=== PATIENT | female | born 1985 | race Caucasian/White ===

== ENCOUNTER 2016-11-20 23:26 | Emergency (ER) | payer MEDICAID, OTHER ==
[~2016-11-20 23:26] MED LIST: PREN1CAP7 PO
[2016-11-21] MEDS ORDERED: LACTATED RINGER'S 1000 ML INJ 1,000 ML IV SCH (01:30)
--- NOTE | 2016-11-21 01:39 | PD ---
HPI Chief Complaint lower abdominal pain and back pain Date Seen: Nov 21, 2016 Travel History International Travel<30 Days: No Contact w/Intl Traveler<30Days: No Known Affected Area: No History of Present Illness HPI This is a 31y/o at 29w4d who presents with c/o back, fever at home 101.4, upper abdominal pain, headaches, body aches, nausea/poor appetite and abdominal "fullness." Last BM was 4-5 days ago. She states she had her baby shower this past weekend and started feeling sick, unsure about sick contacts. No cold like symptoms. Temp of 101.4 at home, afebrile here. care with [facility], care uncomplicated per patient. : 1 History Past Medical History Medical History: Denies Significant Hx Past Surgical History Surgical History: No Previous Surgery Family History Family History: Negative Social History Alcohol Use: No Tobacco Use: No Substance Abuse: No Allergies-Medications (Allergen,Severity, Reaction): Coded Allergies: No Known Allergies (Unverified , 11/13/16) Home Meds Active Scripts W/O Vit A W/ Fe Fumar (Citranatal [place])27-1-260 Mg Cap1 Cap PO DAILY #60 CAP Ref 5 Prov:Juany Veronica [facility] 08/27/16 Review of Systems Except as stated in HPI: all other systems reviewed are Neg Physical Exam Narrative GENERAL: Well-nourished, well-developed patient. SKIN: Warm and dry. HEAD: Normocephalic and atraumatic. EYES: No scleral icterus. No injection or drainage. ENT: No nasal drainage noted. Mucous membranes pink. Airway patent. NECK: Supple, trachea midline. No JVD. CARDIOVASCULAR: Regular rate and rhythm without murmurs, gallops, or rubs. RESPIRATORY: Breath sounds equal bilaterally. No accessory muscle use. BREASTS: Bilateral exam showed no masses , no retractions, no nipple discharge. ABDOMEN/GI: Abdomen soft, non-tender, bowel sounds present, no rebound, no guarding Gravid to 29 weeks size GENITOURINARY: External Genitalia: intact and normal in appearance VE: deferred Uterine Contractions: None FHT's: Category: 1, initially tachycardia, resolved with IVF EXTREMITIES: No cyanosis or edema. BACK: Nontender without obvious deformity. No CVA tenderness. NEUROLOGICAL: Awake and alert. Motor and sensory grossly within normal limits. Five out of 5 muscle strength in all muscle groups. Normal speech. Data Data Vital Signs Reviewed: Yes Orders Influenzae A/B Antigen (11/21/16 00:55) Vital Signs (Adult) .ON ADMISSION (11/21/16 01:30) ^ Labor Status (11/21/16 01:30) Lactated Ringer's 1000 Ml Inj (Lr 1000 M (11/21/16 01:30) Labs Date/Time Procedure Status Source Growth 11/21/16 00:40 Influenza Types A,B Antigen (SOFIA) - Final Complete Nasal Washing NEGATIVE FOR FLU A AND B ANTIGEN.... MDM Medical Record Reviewed: No Narrative Course / MDM 31y/o at 29w4d with initial maternal/ tachycardia which resolved with IVF. -afebrile -rapid flu negative -likely with viral syndrome Plan -d/c home -f/u for routine care Diagnosis Diagnosis: Primary Impression: Viral URI Additional Impression: 29 weeks gestation of Disposition: 01 DISCHARGE HOME Condition: Good Patient Instructions: General Instructions, Labor (ED), Abdominal Pain in (ED) Additional Instructions: RETURN FOR CONTRACTIONS, LOSS OF FLUID (WATER BREAKING), VAGINAL BLEEDING, OR DECREASED MOVEMENT DRINK 8-10 LARGE GLASSES OF WATER EVERY DAY KEEP SCHEDULED APPOINTMENT WITH YOUR PROVIDER Departure Forms: Tests/Procedures Shanti May MD Nov 21, 2016 01:39
== END 2016-11-21 06:45 | disposition home or self-care (01) ==
LOC: HOBED 23:26
DX: O99.513 Diseases of the respiratory system complicating pregnancy, third trimester (principal); J06.9 Acute upper respiratory infection, unspecified; Z3A.29 29 weeks gestation of pregnancy
CPT/HCPCS: 87804; 99283

== ENCOUNTER 2017-02-07 06:41 | Inpatient (IN) | payer MEDICAID ==
[~2017-02-07] VITALS: Ht 162.6 cm; Wt 116.0 kg
[2017-02-07] VITALS (57 sets, daily range): BP systolic 99–145; BP diastolic 56–103; PULSE 74–124; RESP 16–20; TEMP 98–100; O2SAT 100
[2017-02-07] MEDS ORDERED: LACTATED RINGER'S 1000 ML INJ 1,000 ML IV SCH (07:22)
[2017-02-07] MEDS ORDERED: LACTATED RINGER'S 1000 ML INJ 1,000 ML IV PRN (07:22)
--- NOTE | 2017-02-07 07:29 | PD ---
HPI Chief Complaint SROM Date Seen: Feb 07, 2017 Time Seen: 07:18 (Shahram Segovia MD R2) Travel History International Travel<30 Days: No Contact w/Intl Traveler<30Days: No (Shahram Segovia MD R2) History of Present Illness HPI 31-year-old at 40/5 weeks gestation presenting with spontaneous rupture of membranes occurring at 5 AM this morning. She is also having contractions about every 5 minutes. Otherwise she feels well. Denies chest pain, shortness of breath, dysuria. Denies vaginal bleeding. Endorses movement. (Shahram Segovia MD R2) History Past Medical History Medical History: Denies Significant Hx (Shahrma Segovia MD R2) Obstetric History Obstetric History G1 (Shahram Segovia MD R2) Past Surgical History Surgical History: No Previous Surgery (Shahram Segovia MD R2) Family History Family History: Negative (Shahram Segovia MD R2) Social History Alcohol Use: No Tobacco Use: No Substance Abuse: No (Shahram Segovia MD R2) Allergies-Medications (Allergen,Severity, Reaction): Coded Allergies: No Known Allergies (Unverified , 02/05/17) Home Meds Active Scripts W/O Vit A W/ Fe Fumar (Citranatal [place]) 27-1-260 Mg Cap, 1 CAP PO DAILY for Nutritional Supplement, #60 CAP 5 Refills Prov:Juany Veronica [facility] 08/27/16 Review of Systems Except as stated in HPI: all other systems reviewed are Neg (Shahram Segovia MD R2) Physical Exam Narrative GENERAL: Well-nourished, well-developed patient. SKIN: Warm and dry. HEAD: Normocephalic and atraumatic. EYES: No scleral icterus. No injection or drainage. ENT: No nasal drainage noted. Mucous membranes pink. Airway patent. CARDIOVASCULAR: Regular rate and rhythm without murmurs, gallops, or rubs. RESPIRATORY: Breath sounds equal bilaterally. No accessory muscle use. ABDOMEN/GI: Abdomen soft, non-tender, no rebound, no guarding GENITOURINARY: Cervix: midposition Dilation: 5 cm Effacement: 70% Presentation: -2 Membranes: SROM @0500 Contractions: Every 3-5 mins FHT's: Category: 1 Baseline: 140 Reactive: Y Variability: moderate Decels: N EXTREMITIES: No cyanosis or edema. NEUROLOGICAL: Awake and alert. Motor and sensory grossly within normal limits. Normal speech. (Shahram Segovia MD R2) Data Data Vital Signs Reviewed: Yes Orders Orders Ob (2e) Additional Admit Info (02/07/17 07:19) Admit To Inpatient (02/07/17 ) Code Status (02/07/17 07:22) Vital Signs (Adult) .Per protocol (02/07/17:22) Activity Oob Ad Christen (02/07/17 07:22) Heart (02/07/17:22) Amnioinfusion (02/07/17:22) Urinary Catheter Management .ONCE (02/07/17:22) Diet Liquid (02/07/17 Breakfast) Lactated Ringer's 1000 Ml Inj (Lr 1000 M (02/07/17 07:22) Lactated Ringer's 1000 Ml Inj (Lr 1000 M (02/07/17 07:22) Sodium Chlorid 0.9% 500 Ml Inj (Ns 500 M (02/07/17 07:30) Sodium Chlor 0.9% 1000 Ml Inj (Ns 1000 M (02/07/17 07:42) Lidocaine 1% Inj (50 Ml) (Xylocaine 1% I (02/07/17 07:30) Citric Acid-Sodium Citrate Liq (Bicitra (02/07/17 07:30) Ondansetron Inj (Zofran Inj) (02/07/17 07:30) Fentanyl Inj (Fentanyl Inj) (02/07/17 07:30) Fentanyl Inj (Fentanyl Inj) (02/07/17 07:30) Complete Blood Count With Diff (02/07/17 07:22) Hold Clot (02/07/17 07:22) Abo/Rh Blood Type (02/07/17 07:22) Urinalysis - C+S If Indicated (02/07/17 07:22) Resp Oxygen Non Rebreathe Mask (02/07/17 ) ^ Epidural / Intrathecal Infus (02/07/17 07:22) Oxytocin 30 Units-500ml Premix (Pitocin (02/07/17 07:30) Lidocaine 1% Inj (50 Ml) (Xylocaine 1% I (02/07/17 07:30) Light Mineral Oil (Muri-Lube Oil) (02/07/17 07:30) Inpatient Certification (02/07/17 ) Pamg-1 Test .ONCE (02/07/17 07:22) Group B Strep: Negative (Shahram Segovia MD R2) [facility] Medical Record Reviewed: Yes Narrative Course / MDM 31-year-old at 40/5 weeks in labor #1 IUP Category 1 tracing, reassuring #2 GBS negative #3 spontaneous rupture of membranes AmniSure positive #4 labor Contractions and cervical change with spontaneous rupture Admit to L&D Epidural anesthesia per patient preference Continuous monitoring Anticipate uncomplicated vaginal delivery (Shahram Segovia MD R2) Attending Attestation The exam, history, and the medical decision-making described in the above note were completed with the assistance of the resident provider. I reviewed and agree with the findings presented. I attest that I had a [id number] encounter with the patient on the same day, and personally performed and documented my assessment and findings in the medical record. (Severiano Nation MD) Shahram Segovia MD R2 Feb 07, 2017 07:29 Severiano Nation MD Feb 07, 2017 08:03
[2017-02-07] MEDS ORDERED: MINERAL OIL 10 ML VIAL TOPICAL PRN (07:30)
[2017-02-07] MEDS ORDERED: CITRIC ACID-SODIUM CITRATE LIQ 30 ML UDC PO SCH (07:30)
[2017-02-07] MEDS ORDERED: SODIUM CHLORID 0.9% 500 ML INJ 500 ML IV PRN (07:30)
[2017-02-07] MEDS ORDERED: ONDANSETRON HCL 4 MG/2 ML VIAL IV PUSH PRN (07:30)
[2017-02-07] MEDS ORDERED: OXYTOCIN 30 UNITS-500ML PREMIX 500 ML IV ONE (07:30)
[2017-02-07] MEDS ORDERED: LIDOCAINE HCL 1% 50 ML VIAL I-DERMAL PRN (07:30)
[2017-02-07] MEDS ORDERED: LIDOCAINE HCL 1% 50 ML VIAL INFIL PRN (07:30)
[2017-02-07] MEDS ORDERED: SODIUM CHLOR 0.9% 1000 ML INJ 1,000 ML IV PRN (07:42)
[2017-02-07 08:22] LABS: AUTOMATED NEUTROPHIL # 11.3 TH/MM3 (1.8-7.7); BASOPHIL % 0.3 % (0.0-2.0); EOSINOPHIL # 0.1 TH/MM3 (0-0.4); EOSINOPHIL % 0.8 % (0.0-4.0); HEMATOCRIT 38.4 % (35.0-46.0); HEMO FLAGS DIFF FINAL; LYMPH % 13.4 % (9.0-44.0); LYMPHOCYTE # 1.9 TH/MM3 (1.0-4.8); MEAN CELL VOLUME 93.4 FL (80.0-100.0); MEAN CORPUSCULAR HEMOGLOBIN 32.7 PG (27.0-34.0); MONO % 5.1 % (0.0-8.0); NEUT % 80.4 % (16.0-70.0); PLATELET COUNT 211 TH/MM3 (150-450); RED BLOOD COUNT 4.12 MIL/MM3 (4.00-5.30); WHITE BLOOD COUNT 14.1 TH/MM3 (4.0-11.0)
[2017-02-07 08:27] LABS: BACTERIA, URINE RARE /hpf; BLOOD, URINE NEG (NEG); COMMENT (UR) CULTURE INDICATED; CULTURE IF INDICATED CULTURE INDICATED; GLUCOSE,URINE NEG (NEG); KETONE, URINE NEG (NEG); NITRITE,URINE NEG (NEG); SQUAMOUS EPITHELIAL CELL URINE 3 /hpf (0-5); URINE COLOR YELLOW (YELLW/STRAW)
[2017-02-07] MEDS ORDERED: ePHEDrine/NS 25 MG/5 ML SYR ONE (08:33)
[2017-02-07] MEDS ORDERED: fentaNYL 2MCG-BUPIV 0.125% INJ 100 ML ONE (08:33)
--- NOTE | 2017-02-07 09:50 | PD.LABORPN ---
Subjective Subjective S/p epidural. Patient is doing well. No complaints. (Marlene Gary MD R1) Objective Vital Signs Vital Signs Date Time Temp Pulse Resp B/P (MAP) Pulse Ox O2 Delivery O2 Flow Rate FiO2 02/07/17 09:11 86 118/66 (83) 02/07/17 09:10 90 127/73 (91) 02/07/17 09:06 86 125/76 (92) 02/07/17 09:00 93 123/80 (94) Objective Pelvic Exam: Cervix: mid Dilatation: 6cm Effacement: 80% Station: -2 Presentation: vertex Membranes: ruptured Uterine Contractions: every 3-4 min FHT's: Category: 1 Baseline: 120 Reactive: yes Variability: moderate Decels: N Weeks Gestation: 40 Gest Age Assessed Date: Feb 07, 2017 Gest Age Assessed Time: 09:44 Pt started active labor?: Yes Active labor start date: Feb 07, 2017 Active labor start time: 07:00 Medical induction of labor?: No Artificial rupture of membrane: No (Marlene Gary MD R1) Assessment/Plan Assessment and Plan 31-year-old at 40/5 weeks in active labor #1 IUP Category 1 tracing, reassuring #2 GBS negative #3 spontaneous rupture of membranes AmniSure positive #4 labor s/p epidural Cervical change, progressing well. Continuous monitoring Anticipate uncomplicated vaginal delivery (Marlene Gary MD R1) Assessment and Plan Patient seen and evaluated with resident under direct supervision, agree with assessment and plan. (Yariel Naidu MD) Marlene Gary MD R1 Feb 07, 2017 09:50 Yariel Naidu MD Feb 07, 2017 19:49
[2017-02-07] MEDS ORDERED: NO SYSTEM NARCOTICS PRN (10:15)
[2017-02-07] MEDS ORDERED: fentaNYL 2MCG-BUPIV 0.125% 100 ML EPIDURAL SCH (10:15)
[2017-02-07] MEDS ORDERED: ePHEDrine/NS 25 MG/5 ML SYR IV PUSH PRN (10:15)
[2017-02-07] MEDS ORDERED: DO NOT ADMINISTER ANTICOAGULANTS PRN (10:15)
--- NOTE | 2017-02-07 14:18 | PD.LABORPN ---
Subjective Subjective IUPC placed (Marlene Gary MD R1) Objective Vital Signs Vital Signs Date Time Temp Pulse Resp B/P (MAP) Pulse Ox O2 Delivery O2 Flow Rate FiO2 02/07/17 14:01 100 116/84 (95) 02/07/17 14:00 20 02/07/17 13:46 102 121/73 (89) 02/07/17 13:16 101 115/73 (87) 02/07/17 12:44 98.8 20 02/07/17 12:31 101 135/77 (96) 02/07/17 12:22 20 02/07/17 12:16 96 106/57 (73) 02/07/17 12:00 79 113/56 (75) 02/07/17 11:45 20 02/07/17 11:16 85 134/79 (97) 02/07/17 11:01 78 134/80 (98) 02/07/17 10:46 74 132/76 (94) 02/07/17 10:45 20 02/07/17 10:31 84 133/82 (99) 02/07/17 10:16 85 106/59 (75) 02/07/17 10:15 20 02/07/17 10:01 86 114/68 (83) 02/07/17 09:46 91 114/68 (83) 02/07/17 09:31 105 120/80 (93) 02/07/17 09:30 90 02/07/17 09:25 94 02/07/17 09:15 93 116/103 (107) 02/07/17 09:15 97 02/07/17 09:11 86 118/66 (83) 02/07/17 09:10 90 127/73 (91) 02/07/17 09:06 86 125/76 (92) 02/07/17 09:00 93 123/80 (94) Objective Pelvic Exam: Cervix: mid Dilatation: 8 Effacement: 90% Station: -1 Presentation: vertex Membranes: ruptured Uterine Contractions: every 2 min FHT's: Category: 1 Baseline: 130s Reactive: yes Variability: moderate Decels: no Weeks Gestation: 40 Gest Age Assessed Date: Feb 07, 2017 Gest Age Assessed Time: 09:44 Pt started active labor?: Yes Active labor start date: Feb 07, 2017 Active labor start time: 07:00 Medical induction of labor?: No Artificial rupture of membrane: No (Marlene Gary MD R1) Assessment/Plan Assessment and Plan 31-year-old at 40/5 weeks in active labor #1 IUP Category 1 tracing, reassuring #2 GBS negative #3 spontaneous rupture of membranes AmniSure positive #4 labor s/p epidural IUPC placed Continuous monitoring Anticipate uncomplicated vaginal delivery (Marlene Gary MD R1) Assessment and Plan Patient seen and evaluated with resident under direct supervision, agree with assessment and plan. (Yariel Naidu MD) Marlene Gary MD R1 Feb 07, 2017 14:18 Yariel Naidu MD Feb 07, 2017 15:26
[2017-02-07] MEDS ORDERED: MEASLES, MUMPS, RUBELLA VACCINE 0.5 ML VIAL SQ ONE (16:00)
[2017-02-07] MEDS ORDERED: DIPHTH/TETANUS/ACEL PERTUSSIS (BOOSTER) 0.5 ML VIAL/PFS IM ONE (16:00)
[2017-02-07] MEDS ORDERED: BUPIVACAINE HCL PF 0.25% 10 ML VIAL ONE (16:40)
--- NOTE | 2017-02-07 19:32 | PD.OB.DELI ---
Weeks gestation: 40 Gest age assessed date: Feb 07, 2017 Gest age assessed time: 09:44 Pt started active labor?: Yes Active labor start date: Feb 07, 2017 Active labor start time: 07:00 Medical induction of labor?: No Artificial rupture of membrane: No Anesthesia: None Episiotomy: None Vaginal Delivery: Normal, Spontaneous Presentation: Occiput anterior Nuchal Cord: x1 Delayed cord clamping (45 sec): Yes Infant: Female Delivery date: Feb 07, 2017 Delivery time: 07:08 One Minute : 6 Five Minute : 8 Weight: 3690g Placenta: Spontaneous delivery Laceration: Vaginal laceration, 2 deg Repair: Vicryl running Estimated blood loss: 200cc Additional Information Supervised by Dr. Naidu. Laceration repaired by Dr. Naidu. Vaginal delivery by Dr. Gary. (Marlene Gary MD R1) Additional Information Patient seen and evaluated with resident under direct supervision, agree with assessment and plan. (Yariel Naidu MD) Marlene Gary MD R1 Feb 07, 2017 19:32 Yariel Naidu MD Feb 07, 2017 19:50
[2017-02-07] MEDS ORDERED: SODIUM CHLORIDE 0.9% FLUSH 10 ML FLUSH IV FLUSH PRN (19:45)
[2017-02-07] MEDS ORDERED: BENZOCAINE 20% TOPICAL SPRAY 60 ML CAN TOPICAL PRN (19:45)
[2017-02-07] MEDS ORDERED: ALUMINUM/MAGNESIUM/SIMETH 30 ML CUP PO PRN (19:45)
[2017-02-07] MEDS ORDERED: ZOLPIDEM TARTRATE 5 MG TAB PO PRN (19:45)
[2017-02-07] MEDS ORDERED: ONDANSETRON ODT 4 MG TAB PO PRN (19:45)
[2017-02-07] MEDS ORDERED: OXYTOCIN 30 UNITS-500ML PREMIX 500 ML IV SCH (19:45)
[2017-02-07] MEDS ORDERED: WITCH HAZEL 50%/GLYCERIN 12.5% 40 PAD JAR TOPICAL PRN (19:45)
[2017-02-07] MEDS ORDERED: DOCUSATE SODIUM 50 MG/SENNA 8.6 MG TAB PO PRN (19:45)
[2017-02-07 19:58] LABS: BLOOD GAS BASE EXCESS -8.4 mmol/L (-2-2); BLOOD GAS O2 HGB SATURATION 37 % (90-100); CORD BLOOD GAS HCO3 20 mmol/L (21-29); CORD BLOOD GAS PCO2 73 mmHG (34-78); CORD BLOOD GAS PH 7.08 (7.14-7.42); CORD BLOOD GAS PO2 27 mmHG (3.0-40.0); DRAW SITE CORD BLOOD; STAT YES
[2017-02-07] MEDS: ACETAMINOPHEN 325 MG TAB PO PRN (20:51)
[2017-02-07] MEDS: IBUPROFEN 600 MG TAB PO PRN (20:52)
[2017-02-07] MEDS ORDERED: SODIUM CHLORIDE 0.9% FLUSH 10 ML FLUSH IV FLUSH SCH (21:00)
[2017-02-08] MEDS: IBUPROFEN 600 MG TAB PO PRN (07:51)
[2017-02-08] MEDS: ACETAMINOPHEN 325 MG TAB PO PRN (07:52)
[2017-02-08 08:17] VITALS: BP 119/71; PULSE 90; RESP 20; TEMP 98.1
[2017-02-08] MEDS ORDERED: IBUP-232 PO (09:01)
--- NOTE | 2017-02-08 09:02 | HHI.DCPOC ---
Discharge Care Plan Diagnosis: (1) Normal vaginal delivery Report Symptoms to Your Doctor -Temperature above 100.5 degrees -Redness, of incision or excessive or foul smelling drainage -Unusual pain or calf pain -Increased vaginal bleeding -Painful or difficulty urinating -Feelings of extreme sadness or anxiety after 2 weeks Goals to Promote Your Health * To prevent worsening of your condition and complications * To maintain your health at the optimal level Directions to Meet Your Goals Take your medications as prescribed Follow your dietary instruction Follow activity as directed Ensure plenty of rest for recovery Drink fluids for hydration Keep your appointments as scheduled Take your immunizations and boosters as scheduled If your symptoms worsen call your PCP, if no PCP go to Urgent Care Center or Emergency Room Smoking is Dangerous to Your Health. Avoid second hand smoke Call the 24-hour crisis hotline for domestic abuse at Shahram Segovia MD R2 Feb 08, 2017 09:02
--- NOTE | 2017-02-08 09:05 | HHI.OB ---
Subjective Remarks 31 year old female s/p at 40/6 wks gestation, PPD 1. AFVSS. Patient reports she is feeling well. Bleeding is decreasing and pain is well- controlled. She is breast feeding and bonding well with baby. Ambulating without difficulties. She is tolerating a diet without nausea or vomiting. She has not had a bowel movement. She has passed gas. Denies chest pain, dysuria, shortness of breath, or calf pain. (Shahram Segovia MD R2) Remarks Patient seen and evaluated with resident under direct supervision, agree with assessment and plan. (Yariel Naidu MD) Objective Vitals/I&O Vital Signs Date Time Temp Pulse Resp B/P (MAP) Pulse Ox O2 Delivery O2 Flow Rate FiO2 02/08/17 08:17 98.1 90 20 119/71 (87) 02/07/17 21:16 109 128/77 (94) 02/07/17 21:06 18 02/07/17 21:05 98.5 02/07/17 20:56 18 02/07/17 20:46 111 126/64 (84) 02/07/17 20:30 18 02/07/17 20:16 103 123/68 (86) 02/07/17 20:15 18 02/07/17 20:01 104 129/60 (83) 02/07/17 19:46 118 132/65 (87) 02/07/17 19:45 100.0 20 100 02/07/17 19:45 98.0 02/07/17 17:46 108 107/67 (80) 02/07/17 17:31 91 124/75 (91) 02/07/17 17:30 18 02/07/17 17:16 86 120/63 (82) 02/07/17 17:01 89 128/68 (88) 02/07/17 16:54 18 02/07/17 16:53 92 127/72 (90) 02/07/17 16:49 90 126/66 (86) 02/07/17 16:46 92 124/67 (86) 02/07/17 16:31 95 104/65 (78) 02/07/17 16:27 16 02/07/17 16:16 97 128/66 (86) 02/07/17 16:03 100 110/56 (74) 02/07/17 15:46 88 145/75 (98) 02/07/17 15:31 86 134/84 (101) 02/07/17 15:30 18 02/07/17 15:00 85 129/92 (104) 02/07/17 15:00 20 02/07/17 14:31 88 99/60 (73) 02/07/17 14:16 124 129/87 (101) 02/07/17 14:01 100 116/84 (95) 02/07/17 14:00 20 02/07/17 13:46 102 121/73 (89) 02/07/17 13:16 101 115/73 (87) 02/07/17 12:44 98.8 20 02/07/17 12:31 101 135/77 (96) 02/07/17 12:22 20 02/07/17 12:16 96 106/57 (73) 02/07/17 12:00 79 113/56 (75) 02/07/17 11:45 20 02/07/17 11:16 85 134/79 (97) 02/07/17 11:01 78 134/80 (98) 02/07/17 10:46 74 132/76 (94) 02/07/17 10:45 20 02/07/17 10:31 84 133/82 (99) 02/07/17 10:16 85 106/59 (75) 02/07/17 10:15 20 02/07/17 10:01 86 114/68 (83) 02/07/17 09:46 91 114/68 (83) 02/07/17 09:31 105 120/80 (93) 02/07/17 09:30 90 02/07/17 09:25 94 02/07/17 09:15 93 116/103 (107) 02/07/17 09:15 97 02/07/17 09:11 86 118/66 (83) 02/07/17 09:10 90 127/73 (91) 02/07/17 09:06 86 125/76 (92) Intake & Output 02/08/17 02/08/17 07:00 19:00 Intake Total 500 ml Balance 500 ml Intake IV Total 500 ml Objective Remarks GENERAL: Well-nourished, well-developed patient. CARDIOVASCULAR: Regular rate and rhythm without murmurs, gallops, or rubs. RESPIRATORY: Breath sounds equal bilaterally. No accessory muscle use. ABDOMEN/GI: Abdomen soft, non-tender. Fundus: Firm, non-tender at umbilicus. GENITOURINARY: Light to moderate bleeding. EXTREMITIES: No cyanosis or edema, non-tender, without signs of DVT. Medications and IVs Current Medications Medications (Trade) Dose Ordered Sig/Marcie Route Start Time Stop Time Status Last Admin Miscellaneous Information No systemic narcotics to be given except... UNSCH PRN .XX 02/07/17 10:15 02/08/17 10:14 Miscellaneous Information DO NOT ADMINISTER ANY ANTICOAGUL... UNSCH PRN .XX 02/07/17 10:15 02/08/17 10:14 (NS Flush) 2 ml BID IV FLUSH 02/07/17 21:00 (NS Flush) 2 ml UNSCH PRN IV FLUSH 02/07/17 19:45 (Tylenol) 650 mg Q4H PRN PO 02/07/17 19:45 02/08/17 07:52 (Motrin) 600 mg Q6H PRN PO 02/07/17 19:45 02/08/17 07:51 (Americaine 20% Top Spr) 1 spray Q4H PRN TOPICAL 02/07/17 19:45 (Tucks Pads) 1 applic QID PRN TOPICAL 02/07/17 19:45 (Maria Elena-Colace) 2 tab Q12H PRN PO 02/07/17 19:45 02/07/17 20:55 (Ambien) 5 mg HS PRN PO 02/07/17 19:45 (Mag-Al Plus Susp Liq) 15 ml Q8H PRN PO 02/07/17 19:45 (Zofran Odt) 4 mg Q6H PRN PO 02/07/17 19:45 (Shahram Segovia MD R2) Assessment/Plan Assessment and Plan 31 yo female s/p , PPD 1 - AFVSS - Continue routine care - Motrin PRN pain - Encourage OOB - Pelvic rest x 6 wks - Contraception: Wants OCPs; will Rx progestin-only pill since - Anticipate D/C today if baby cleared (Shahram Segovia MD R2) Shahram Segovia MD R2 Feb 08, 2017 09:05 Yariel Naidu MD Feb 10, 2017 06:53
[2017-02-08] MEDS ORDERED: NORE0.3513 PO (09:11)
== END 2017-02-08 20:09 | disposition home or self-care (01) | DRG 775 ==
LOC: HOBED 06:41 → H2EB 07:25 → H1EA 22:04
PROVIDERS: ADMIT Obstetrics & Gynecology; ATTEND Obstetrics & Gynecology
PROC: 10E0XZZ Delivery of Products of Conception, External Approach (ICD-10-PCS; principal; 2017-02-07)
PROC: 0KQM0ZZ Repair Perineum Muscle, Open Approach (ICD-10-PCS; 2017-02-07)
DX: O71.4 Obstetric high vaginal laceration alone (principal); Z37.0 Single live birth; O69.81X0 Labor and delivery complicated by cord around neck, without compression, not applicable or unspecified; Z3A.40 40 weeks gestation of pregnancy
CPT/HCPCS: 59025; 81001; 82805; 84112; 85025; 86900; 86901; 87086; 90715; J2590